=== PATIENT | female | born 1945 | race Caucasian/White ===

== ENCOUNTER 2016-12-26 10:48 | Outpatient (CLI) | payer MEDICARE, OTHER | END 2016-12-26 10:49 | disposition home or self-care (01) | DX: Z00.00 Encounter for general adult medical examination without abnormal findings (principal); E87.1 Hypo-osmolality and hyponatremia; E78.5 Hyperlipidemia, unspecified; E03.9 Hypothyroidism, unspecified; I10 Essential (primary) hypertension ==

== ENCOUNTER 2017-01-12 13:05 | Outpatient (CLI) | payer MEDICARE, OTHER | END 2017-01-12 13:06 | disposition home or self-care (01) | DX: Z13.820 Encounter for screening for osteoporosis (principal); M85.89 Other specified disorders of bone density and structure, multiple sites ==

== ENCOUNTER 2017-03-15 13:07 | Emergency (ER) | payer MEDICARE, OTHER ==
[2017-03-15 13:18] VITALS: BP 132/86
--- NOTE | 2017-03-15 13:36 | ED Physician Documentation ---
History of Present Illness - Stated complaint Stated Complaint: LEFT THUMB/EYE INJ - Chief complaint Chief Complaint: General - History obtained from History obtained from: Patient - History of Present Illness Timing: Other (Fell down some stairs last night, mostly injured her left thumb which is quite painful and swollen but also has some scrapes about the face without visual deficit or headache. No loss of consciousness. 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 - Present Medications Home Medications: Ambulatory Orders Medication Instructions Recorded Confirmed Anastrozole 1 mg PO DAILY 06/07/13 03/15/17 Diazepam 10 mg PO DAILY PRN 06/07/13 03/15/17 Donepezil [Aricept] 10 mg PO DAILY 06/07/13 03/15/17 Esomeprazole Magnesium [Nexium] 20 mg PO DAILY 06/07/13 03/15/17 Ipratropium [place] 1 spray INH BID 06/07/13 03/15/17 Levothyroxine [Synthroid] 100 mcg PO DAILY 06/07/13 03/15/17 Nifedipine [Nifedipine Xl] 60 mg PO DAILY 06/07/13 03/15/17 Nortriptyline [Pamelor] 25 mg PO DAILY 06/07/13 03/15/17 Olmesartan Medoxomil [Benicar] 40 mg PO DAILY 06/07/13 03/15/17 Oxcarbazepine 1,350 mg PO DAILY 06/07/13 03/15/17 traMADol [Ultram] 50 mg PO Q4-6H PRN #15 tablet 03/15/17 - Allergies Allergies/Adverse Reactions: Allergies Allergy/AdvReac Type Severity Reaction Status Date / Time No Known Drug Allergies Allergy Unverified 12/27/13 10:01 - Social History Does the pt smoke?: No Smoking Status: Never smoker Does the pt have substance abuse?: No PD ED PE NORMAL - Vitals Vital signs reviewed: Yes - General General: Alert and oriented X 3, No acute distress - HEENT HEENT: Other (Small amount of abrasion and swelling lateral to the right eye without facial bony tenderness or limited extraocular movements.) - Neck Neck: Supple, no meningeal sign, No bony TTP - Extremities Extremities: Other (The entirety of the left thumb is very swollen and tender at the interphalangeal joint and very ecchymotic, a trephination with electrocautery is done of the nail during exam.) - Neuro Neuro: Alert and oriented X 3, Normal speech - Psych Psych: Normal mood, Normal affect Results - Vitals Vitals: Vital Signs - 24 hr 03/15/17 13:15 Temperature 36.3 C L Heart Rate 74 Respiratory 18 Rate Blood Pressure 132/86 H O2 Saturation 100 Oxygen O2 Source [] Room air O2 Source Room air - Rads (name of study) L thumb Radiology: EMP read contemporaneously (Comminuted displaced distal phalanx fracture) Procedures - Splint (location) L thumb Splint applied by: Tech Type of splint: Metal foam finger splint Other: Patient tolerated well, No complications, Neurovascular intact PD MEDICAL DECISION MAKING - ED course ED course: The patient and family were counseled as to the diagnosis and need for follow- up. I counseled the patient with regard to signs and symptoms that would necessitate an urgent reevaluation in the emergency department. They understand they are welcome to return at any time if worse or if not improving as expected. This document was made in part using voice recognition software. While efforts are made to proofread this documents, sound alike and grammatical errors may occur. Departure - Departure Disposition: 01 Home, Self Care Clinical Impression: Fracture of thumb, left, closed Qualifiers: Encounter type: initial encounter Phalanx: distal Fracture alignment: displaced Qualified Code(s): S62.522A - Displaced fracture of distal phalanx of left thumb, initial encounter for closed fracture Facial contusion Qualifiers: Encounter type: initial encounter Qualified Code(s): S00.83XA - Contusion of other part of head, initial encounter Condition: Good Record reviewed to determine appropriate education?: Yes Instructions: ED Fx Finger Closed Follow-Up: [facility] [Provider Group] - Within 1 week Prescriptions: traMADol [Ultram] 50 mg PO Q4-6H PRN #15 tablet PRN Reason: Pain Comments: You can take the splint off briefly to wash it but keep it on the rest of the time. Follow-up with the orthopedist in 1 week. Your blood pressure was elevated today on check into the emergency department. This does not mean that you have hypertension, it is a common phenomenon to come to the emergency department and have elevated blood pressure. I recommend that she see her primary care physician within the week to have it rechecked when you are feeling better. Discharge Date/Time: 03/15/17 13:48
--- NOTE | 2017-03-15 13:57 | XRAY Preliminary Report ---
Exam: XR Finger(s) LT IMPRESSION: Comminuted fracture of the distal phalanx of the left thumb, with mild displacement [facility] SITE ID: [id number]
--- NOTE | 2017-03-15 14:00 | XRAY Report ---
EXAM: LEFT FIRST DIGIT RADIOGRAPHY EXAM DATE: 03/15/2017 01:48 PM. CLINICAL HISTORY: Thumb inj. COMPARISON: None. TECHNIQUE: 3 views. FINDINGS: Bones: There is a comminuted fracture of the distal phalanx of the left thumb. Mild displacement. Joints: Osteoarthritis. Soft Tissues: Soft tissue swelling. No radiopaque foreign body. IMPRESSION: Comminuted fracture of the distal phalanx of the left thumb, with mild displacement [facility] Referring Provider Line: [phone] SITE ID: [id number]
== END 2017-03-15 13:48 | disposition home or self-care (01) ==
LOC: ED 13:07
DX: S62.522A Displaced fracture of distal phalanx of left thumb, initial encounter for closed fracture (principal); S00.11XA Contusion of right eyelid and periocular area, initial encounter; W10.9XXA Fall (on) (from) unspecified stairs and steps, initial encounter; I10 Essential (primary) hypertension; G35 Multiple sclerosis; F03.90 Unspecified dementia, unspecified severity, without behavioral disturbance, psychotic disturbance, mood disturbance, and anxiety; Z90.10 Acquired absence of unspecified breast and nipple
CPT/HCPCS: 29130; 73140; 99283

== ENCOUNTER 2017-06-04 11:02 | Day surgery (SDC) | payer MEDICARE, OTHER ==
[2017-06-04] MEDS ORDERED: LACTATED RINGERS 1,000 ML IV ONE (11:10)
[2017-06-04] MEDS ORDERED: fentaNYL 100 MCG/2 ML VIAL IVP ONE (12:10)
[2017-06-04] MEDS ORDERED: MIDAZOLAM 2 MG/2 ML VIAL IVP ONE (12:10)
[2017-06-04 13:10] VITALS: BP 118/68
== END 2017-06-04 11:03 | disposition home or self-care (01) ==
LOC: SDS 11:02
PROVIDERS: ATTEND Surgery
PROC: 0DJD8ZZ Inspection of Lower Intestinal Tract, Via Natural or Artificial Opening Endoscopic (ICD-10-PCS; principal; 2017-06-04 12:00)
DX: Z12.11 Encounter for screening for malignant neoplasm of colon (principal); K57.30 Diverticulosis of large intestine without perforation or abscess without bleeding; K64.8 Other hemorrhoids; Z87.19 Personal history of other diseases of the digestive system; I10 Essential (primary) hypertension; Z85.3 Personal history of malignant neoplasm of breast; G35 Multiple sclerosis; E78.5 Hyperlipidemia, unspecified; M35.9 Systemic involvement of connective tissue, unspecified; Z87.891 Personal history of nicotine dependence; Z79.82 Long term (current) use of aspirin
CPT/HCPCS: G0105; J7120

== ENCOUNTER 2018-04-03 09:25 | Emergency (ER) | payer MEDICARE, OTHER ==
[2018-04-03 09:41] VITALS: BP 132/84
--- NOTE | 2018-04-03 09:51 | ED Physician Documentation ---
History of Present Illness - Stated complaint Stated Complaint: LUMP LEFT LEG - Chief complaint Chief Complaint: General - History obtained from History obtained from: Patient - History of Present Illness Timing: How many weeks ago (2) Pain level max: 2 Pain level now: 1 Improved by: nothing Worsened by: palpation - Additonal information Additional information: Patient gives herself injections into her legs for her multiple sclerosis, she states that she has a hematoma to the L thigh. No redness. Mild swelling. NVI. Review of Systems Constitutional: denies: Fever, Chills GI: denies: Vomiting Skin: denies: Rash PD PAST MEDICAL HISTORY - Past Medical History Cardiovascular: Hypertension Endocrine/Autoimmune: HyPOthyroidism Psych: None - Past Surgical History /[employer]: Mastectomy - Present Medications Home Medications: Ambulatory Orders Medication Instructions Recorded Confirmed Diazepam 10 mg PO DAILY PRN 06/07/13 06/04/17 Donepezil [Aricept] 10 mg PO DAILY 06/07/13 06/04/17 Esomeprazole Magnesium [Nexium] 20 mg PO DAILY 06/07/13 06/04/17 Ipratropium [place] 1 spray INH BID 06/07/13 06/04/17 Levothyroxine [Synthroid] 100 mcg PO DAILY 06/07/13 06/04/17 Nifedipine [Nifedipine Xl] 60 mg PO DAILY 06/07/13 06/04/17 Nortriptyline [Pamelor] 25 mg PO DAILY 06/07/13 06/04/17 Olmesartan Medoxomil [Benicar] 40 mg PO DAILY 06/07/13 06/04/17 Oxcarbazepine 1,050 mg PO DAILY 06/07/13 06/04/17 Olmesartan Medoxomil [Benicar] 04/03/18 - Allergies Allergies/Adverse Reactions: Allergies Allergy/AdvReac Type Severity Reaction Status Date / Time No Known Drug Allergies Allergy Unverified 04/03/18 09:41 - Social History Does the pt smoke?: No Smoking Status: Never smoker Does the pt have substance abuse?: No PD ED PE NORMAL - Vitals Vital signs reviewed: Yes - General General: Alert and oriented X 3, No acute distress - HEENT HEENT: Moist mucous membranes - Derm Derm: Warm and dry - Extremities Extremities: Other (L thigh - slight ecchymosis to mid, lateral thigh. no swelling, no redness. no drainage. ) - Neuro Neuro: Alert and oriented X 3 - Psych Psych: Normal mood, Normal affect Results - Vitals Vitals: Vital Signs - 24 hr 04/03/18 09:35 Temperature 36.4 C L Heart Rate 66 Respiratory 16 Rate Blood Pressure 132/84 H O2 Saturation 99 Oxygen O2 Source [Without Activity] Room air O2 Source Room air PD MEDICAL DECISION MAKING - ED course Complexity details: considered differential, d/w patient ED course: Patient is a 72-year-old female with slight ecchymosis and hematoma to the left thigh after an injection. No signs of infection. Ziggy bandage applied for compression. We will have her remove it tomorrow. We will have her follow-up with her doctor for further care. Patient counseled regarding signs and symptoms for which I believe and urgent re-evaluation would be necessary. Patient with good understanding of and agreement to plan and is comfortable going home at this time This document was made in part using voice recognition software. While efforts are made to proofread this document, sound alike and grammatical errors may occur. - Sepsis Event Vital Signs: Vital Signs - 24 hr 04/03/18 09:35 Temperature 36.4 C L Heart Rate 66 Respiratory 16 Rate Blood Pressure 132/84 H O2 Saturation 99 Oxygen O2 Source [Without Activity] Room air O2 Source Room air Departure - Departure Disposition: 01 Home, Self Care Clinical Impression: Hematoma Condition: Good Instructions: ED Hematoma Follow-Up: Jessenia Ramey PA-C [Primary Care Provider] - Within 1 week (for wound check) Comments: Wear the Ziggy bandage for the next 24 hours. Return if you worsen. This should improve over the next few days. Discharge Date/Time: 04/03/18 09:55
== END 2018-04-03 09:55 | disposition home or self-care (01) ==
LOC: ED 09:25
DX: S70.12XA Contusion of left thigh, initial encounter (principal); X58.XXXA Exposure to other specified factors, initial encounter; G35 Multiple sclerosis; I10 Essential (primary) hypertension; E03.9 Hypothyroidism, unspecified
CPT/HCPCS: 99283